=== PATIENT | male | born 1970 | race Caucasian/White ===

== ENCOUNTER 2018-01-18 17:50 | Emergency (ER) | payer MEDICAID, SELFPAY ==
[2018-01-18 17:51] VITALS: BP 127/79; PULSE 98; RESP 17; TEMP 36.9; O2SAT 94; BMI 29.3
[2018-01-18] MEDS: Sodium Chloride 0.65% 1 SPRAY SPRAY.BTL 2 SPRAY NASAL (18:50)
--- NOTE | 2018-01-18 18:53 | ED.VISSUMM ---
- ER Visit Summary Date of Service: 01/18/18 Chief Complaint: I have a Q-tip stuck in my nose History of Present Illness: The patient is a 47 M who states he was cleaning out his nose with a Q-tip when he inhaled and part of it went up his nose. He feels like it stuck up in his nose. He states he has been battling a URI and has had a lot of sinus drainage which is why he was cleaning out his nose with a Q-tip. Physical Examination: Vital signs reviewed. HEENT exam reveals swollen turbinates on the right. I do not see any foreign bodies on the left nasal canal. His posterior oropharynx is slightly inflamed but no foreign bodies are seen. Test Results: None performed Emergency Department Course and Treatment: I had the patient inhaled saline rinses on the left nares. He states it feels like something is in his hypopharynx. I do not see any foreign bodies. At this point I do not feel there is anything else that needs to be done. He will continue nasal rinses with saline at home. I will give him ear nose and throat follow-up Treatment Plan: [] Disposition: Discharge Impression: Nasal foreign body This note was generated with [employer] dictation software. It may contain incorrect words, spelling, and punctuation that were not noted in review of the chart prior to signing ED Disposition - Plan for ED Patient: Disposition: Home or Assisted Living Chief Complaint: Foreign Body Instructions: Foreign Object in the Ear or Nose Referrals: Cristopher Kraft MD [Primary Care Provider] - Marcel Obrien MD [STAFF PHYSICIAN] -
[2018-01-18 19:14] VITALS: PULSE 78; RESP 16; O2SAT 100
== END 2018-01-18 19:14 | disposition home or self-care (01) ==
PROVIDERS: Emergency Provider Emergency Medicine
DX: T17.1XXA Foreign body in nostril, initial encounter (principal); Z72.0 Tobacco use
CPT/HCPCS: 99282